=== PATIENT | female | born 1980 | race Caucasian/White ===

== ENCOUNTER 2017-10-07 11:32 | Day surgery (SDC) | payer OTHER ==
[2017-10-06 10:11] VITALS: BMI 28.3
[2017-10-07 12:29] LABS: INR 0.9 (0.82-1.09); PROTHROMBIN TIME (PATIENT) 10.1 SEC (10.2-13.0)
[2017-10-07] MEDS ORDERED: fentaNYL CITRATE 250 MCG/5 ML VIAL ONE ×2 (13:07→13:59)
[2017-10-07] MEDS ORDERED: ROCURONIUM BROMIDE 50 MG/5 ML VIAL ONE (13:07)
[2017-10-07] MEDS ORDERED: SUCCINYLCHOLINE CHLORIDE 200 MG/10 ML VIAL ONE (13:07)
[2017-10-07] MEDS ORDERED: MIDAZOLAM HCL 2 MG/2 ML SINGLE DOSE VIAL ONE (13:07)
[2017-10-07] MEDS ORDERED: PROPOFOL 20 ML ONE ×2 (13:07)
[2017-10-07] MEDS ORDERED: PHENYLEPHRINE 2.5% OPHTH SOLN 15 ML BOTTLE ONE (13:20)
[2017-10-07] MEDS ORDERED: LIDOCAINE 1%/EPI 1:100000 (20 ML MULTI DOSE VIAL) ONE (13:21)
[2017-10-07] MEDS ORDERED: PROMETHAZINE HCL 25 MG/1 ML VIAL ONE (14:06)
[2017-10-07] MEDS ORDERED: OXYMETAZOLINE 0.05% NASAL SOLUTION 15 ML BOTTLE NS ONE (14:08)
[2017-10-07] MEDS ORDERED: BACITRACIN 15 GM TUBE TOPICAL OINTMENT ONE (14:13)
[2017-10-07] MEDS ORDERED: GUM MASTIC/STORAX/MSAL/ALCOHOL 1 DRP DROPSBTL MC ONE (14:14)
[2017-10-07] MEDS ORDERED: LIDOCAINE 1%/EPI 1:100000 (20 ML MULTI DOSE VIAL) IJ ONE (14:19)
[2017-10-07] MEDS ORDERED: HYDROmorphone HCL/PF 1 MG/ML VIAL (FOR PYXIS CHARGING ONLY) ONE (14:47)
[2017-10-07] MEDS ORDERED: PROMETHAZINE HCL 25 MG/1 ML VIAL IVPB PRN (15:02)
[2017-10-07] MEDS ORDERED: ONDANSETRON 4 MG/2 ML VIAL IVPUSH PRN (15:02)
[2017-10-07] MEDS: HYDROmorphone HCL CARPU-JECT 1 MG/1 ML DISP.SYRIN IVPUSH PRN ×3 (15:02→15:30)
[2017-10-07] MEDS ORDERED: diazePAM 2 MG TABLET PO ONE (15:04)
[2017-10-07] MEDS ORDERED: HYDROmorphone HCL CARPU-JECT 1 MG/1 ML DISP.SYRIN ONE ×2 (15:13→15:30)
[2017-10-07] MEDS ORDERED: HYDROmorphone HCL 2 MG TABLET ONE (16:14)
[2017-10-07 18:07] VITALS: BP 133/84; PULSE 62; TEMP 97.7
--- NOTE | 2017-10-10 13:51 | EKG ---
Test Reason : Blood Pressure : / mmHG Vent. Rate : 081 BPM Atrial Rate : 081 BPM P-R Int : 162 ms QRS Dur : 102 ms QT Int : 396 ms P-R-T Axes : 054 032 022 degrees QTc Int : 460 ms NORMAL SINUS RHYTHM WITH SINUS ARRHYTHMIA INCOMPLETE RIGHT BUNDLE BRANCH BLOCK BORDERLINE ECG NO PREVIOUS ECGS AVAILABLE Confirmed by KYLEE CAGLE MD ([id number]) on 10/10/2017 1:51:28 PM Referred By: Padmini Allen Confirmed By:KYLEE CAGLE MD
== END 2017-10-07 17:00 | disposition home or self-care (01) ==
LOC: FASU 11:32
PROVIDERS: ATTEND Surgery
PROC: 0NSBXZZ Reposition Nasal Bone, External Approach (ICD-10-PCS; principal; 2017-10-07 14:50)
DX: S02.2XXA Fracture of nasal bones, initial encounter for closed fracture (principal); X58.XXXA Exposure to other specified factors, initial encounter; Y93.9 Activity, unspecified; Y92.9 Unspecified place or not applicable
CPT/HCPCS: 36415; 84703; 85610; 93005; 94760